=== PATIENT | male | born 1935 | race Two or more races ===

== ENCOUNTER 2018-01-30 11:57 | Outpatient (CLI) | payer OTHER ==
[~2018-01-30 11:57] MED LIST: ASA81 MG PO; CALCIUM 600 + D1 TAB PO; CENTRUM SILVER1 EAC2 PO; DICLOFENAC SODI50 MG PO; DIOVAN320 MG PO; LEVAQUIN500 MG PO; LYRICA50 MG PO; PRAVASTATIN SOD10 MG PO; TAMS0.4C PO
== END 2018-01-30 12:01 | disposition home or self-care (01) ==
LOC: SONOGRAMA 11:57
DX: M25.511 Pain in right shoulder (principal)

== ENCOUNTER 2018-02-26 10:17 | Outpatient (CLI) | payer OTHER | END 2018-02-26 10:23 | disposition home or self-care (01) | LOC: SONOGRAMA 10:17 | DX: M16.11 Unilateral primary osteoarthritis, right hip (principal); Z96.641 Presence of right artificial hip joint ==

== ENCOUNTER → 2020-09-20 | Outpatient (CLI) | payer OTHER | END | disposition home or self-care (01) | LOC: RX STUDY 10:15 | PROVIDERS: ATTEND Otolaryngology | DX: K22.8 Other specified diseases of esophagus (principal); R13.11 Dysphagia, oral phase ==